=== PATIENT | female | born 1950 | race American Indian/Alaskan Native ===

== ENCOUNTER 2019-09-03 11:41 | Outpatient (CLI) | payer MEDICARE ==
--- NOTE | 2019-09-03 12:16 | XRay Report ---
CHEST 2 VIEWS INDICATION: COUGH. COMPARISON: 6 none. FINDINGS: Support devices: None. Heart: Within normal limits. Lungs/Pleura: No acute air space or interstitial disease. No significant pleural effusion. IMPRESSION: No acute findings. Signer Name: Marlon Oliver MD Signed: 09/03/2019 12:11 PM Workstation Name: [id number]
== END 2019-09-03 11:42 | disposition home or self-care (01) ==
LOC: SPVIMAG 11:41
PROVIDERS: ATTEND Internal Medicine Hematology & Oncology
DX: R05 Cough (principal); R97.8 Other abnormal tumor markers; C50.912 Malignant neoplasm of unspecified site of left female breast
CPT/HCPCS: 71046